=== PATIENT | male | born 1990 | race Caucasian/White ===

== ENCOUNTER 2023-07-08 15:27 | Emergency (ER) | payer OTHER ==
[~2023-07-08] VITALS: Ht 180.3 cm; Wt 63.5 kg
[2023-07-08 16:40] LABS: BASOPHILS ABSOLUTE AUTO 0.01 K/mm3 (0.00-0.23); BASOPHILS PERCENT AUTO 0 % (0-2); EOSINOPHILS ABSOLUTE AUTO 0.06 K/mm3 (0.00-0.68); EOSINOPHILS PERCENT AUTO 1 % (0-6); Hematocrit 40.8 % (37.0-53.0); Hemoglobin 14.2 g/dL (13.5-17.5); IMMATURE GRAN ABSOLUTE AUTO 0.03 K/mm3 (0.00-0.10); IMMATURE GRAN PERCENT AUTO 0 % (0-1); LYMPHOCYTES ABSOLUTE AUTO 1.03 K/mm3 (0.84-5.20); LYMPHOCYTES PERCENT AUTO 11 % (21-46); MONOCYTES ABSOLUTE AUTO 0.74 K/mm3 (0.16-1.47); MONOCYTES PERCENT AUTO 8 % (4-13); Mean Corpuscular HGB 31.8 pg (26.0-34.0); Mean Corpuscular HGB Conc 34.8 g/dL (31.5-36.5); Mean Corpuscular Volume 92 fL (80-100); NEUTROPHILS ABSOLUTE AUTO 7.36 K/mm3 (1.96-9.15); NEUTROPHILS PERCENT AUTO 80 % (41-73); Platelet Count 283 K/mm3 (150-400); RDW Coefficient Variation 11.8 % (11.7-14.2); RDW Standard Deviation 39.9 fL (35.1-46.3); Red Blood Cell Count 4.46 M/mm3 (4.30-5.90); White Blood Cell Count 9.23 K/mm3 (4.00-11.30)
[2023-07-08 17:05] LABS: Influenza A, PCR NEGATIVE (NEGATIVE); Influenza B, PCR NEGATIVE (NEGATIVE); Resp Syncytial Virus, PCR NEGATIVE (NEGATIVE); SARS-Cov-2 (COVID-19) PCR, MMC NEGATIVE (NEGATIVE)
[2023-07-08 17:09] LABS: Albumin, Blood 4.2 g/dL (3.4-5.0); Albumin/Globulin Ratio 1.2 (0.8-1.8); Bilirubin, Total 0.4 mg/dL (0.1-1.0); Bun/Creatinine Ratio 15.6 (12.0-20.0); Calcium, Blood 9.1 mg/dL (8.5-10.1); Creatinine, Blood 0.83 mg/dL (0.60-1.20); Globulin, Blood 3.6 g/dL (2.2-4.0); Potassium, Blood 4.8 mmol/L (3.5-5.5); Total Protein, Blood 7.8 g/dL (6.4-8.2)
[2023-07-08 18:45] VITALS: BP 139/80
== END 2023-07-08 18:46 | disposition home or self-care (01) ==
LOC: ER 15:27
PROVIDERS: Physician Assistant
DX: R55 Syncope and collapse (principal)
CPT/HCPCS: 0241U; 80053; 85025; 93005; 93010; 99284-25

== ENCOUNTER 2023-07-14 09:02 | Inpatient (IN) | payer OTHER ==
[2023-07-14] VITALS (29 sets, daily range): BP systolic 80–118; BP diastolic 55–77
[~2023-07-14] VITALS: Ht 180.3 cm; Wt 61.5 kg
[2023-07-14] MEDS ORDERED: LORazepam 2 MG/ML 1ML Injection IV ONE (09:25)
[2023-07-14] MEDS ORDERED: LORazepam 2 MG/ML 1ML Injection IV PRN ×7 (09:25→13:10)
[2023-07-14] MEDS ORDERED: Doxycycline Mo100 M1 PO (09:25)
[2023-07-14 09:40] LABS: Hematocrit 39.5 % (37.0-53.0); Hemoglobin 14.5 g/dL (13.5-17.5); Mean Corpuscular HGB 31.8 pg (26.0-34.0); Mean Corpuscular HGB Conc 36.7 g/dL (31.5-36.5); Mean Corpuscular Volume 87 fL (80-100); Mean Platelet Volume 10.7 fL (9.1-12.4); Platelet Count 279 K/mm3 (150-400); RDW Coefficient Variation 11.2 % (11.7-14.2); RDW Standard Deviation 35.8 fL (35.1-46.3); Red Blood Cell Count 4.56 M/mm3 (4.30-5.90)
[2023-07-14 09:55] LABS: Alanine Aminotransfer (ALT/SGP 34 U/L (12-78); Albumin, Blood 4.1 g/dL (3.4-5.0); Albumin/Globulin Ratio 1.1 (0.8-1.8); Alk Phos 59 U/L (50-136); Anion Gap 8 mmol/L (6-16); Aspartate Aminotrans (AST/SGOT 35 U/L (12-37); Bilirubin, Total 0.5 mg/dL (0.1-1.0); Blood Urea Nitrogen 12 mg/dL (8-24); Bun/Creatinine Ratio 15.5 (12.0-20.0); CO2, Blood 24 mmol/L (21-32); Calcium, Blood 9.3 mg/dL (8.5-10.1); Chloride, Blood 104 mmol/L (98-108); Creatinine, Blood 0.78 mg/dL (0.60-1.20); Ethanol (Alcohol), Blood, Med <3 mg/dL; Globulin, Blood 3.8 g/dL (2.2-4.0); Glomerular Filtration Rate 120 (60-); Glucose, Blood 101 mg/dL (70-99); Potassium, Blood 3.6 mmol/L (3.5-5.5); Sodium, Blood 136 mmol/L (136-145); Total Protein, Blood 7.9 g/dL (6.4-8.2)
[2023-07-14] MEDS ORDERED: Diazepam 5 MG Tab PO ONE (10:05)
[2023-07-14 10:11] LABS: BAND PERCENT MAN 10 % (0-8); BASOPHILS PERCENT MAN 0 % (0-2); EOSINOPHILS PERCENT MAN 0 % (0-6); LYMPHOCYTES ABSOLUTE MAN 1.72 K/mm3 (0.84-5.20); LYMPHOCYTES PERCENT MAN 27 % (21-46); MONOCYTES ABSOLUTE MAN 0.64 K/mm3 (0.16-1.47); MONOCYTES PERCENT MAN 10 % (4-13); NEUTROPHILS ABSOLUTE MAN 4.03 K/mm3 (1.96-9.15); SEG NEUTROPHILS PERCENT MAN 53 % (41-73); TOTAL CELLS COUNTED 100
[2023-07-14] MEDS ORDERED: FLU VACC QS2023-24(6MOS UP)/PF 60 MCG/0.5 ML SYRINGE IM SCH (11:05)
[2023-07-14] MEDS ORDERED: Ondansetron 4 MG TAB PO PRN (11:10)
[2023-07-14] MEDS ORDERED: NS 1,000 ML IV SCH (12:00)
[2023-07-14] MEDS ORDERED: Thiamine HCl 100 MG in NS 50 ML IV SCH (13:00)
[2023-07-14] MEDS ORDERED: Folic Acid 1 MG in NS 50 ML IV SCH (13:00)
[2023-07-14] MEDS ORDERED: Lidocaine 2% Jelly Uro-Jet UR ONE (14:35)
[2023-07-14 15:18] LABS: U Amphetamine Screen Not Detected; U Barbituate Screen Not Detected; U Benzodiazapine Screen DETECTED; U Buprenorphine Screen Not Detected; U Cannabinoids Screen Not Detected; U Cocaine Screen Not Detected; U Methadone Screen Not Detected; U Methamphetamine Screen Not Detected; U Opiates Screen Not Detected; U Oxycodone Screen Not Detected; U Phencyclidine Screen Not Detected
--- NOTE | 2023-07-14 18:28 | NUR ---
SHIFT SUMMARY/ ASSESSMENT PT ARRIVED TO ICU ROOM 3 FROM ER FOR ETOH/ BENZO WITHDRAWLS. . MOVED OVER TO ICU BED VIA SLIDER SHEET. INITIALLY NOT AWAKENING TO PAINFUL STIMULI, PRECEDEX TURNED OFF FOR APPROXIMATELY 1.5 HOURS, VSS DURING THAT TIME. WHEN PT AWOKE, ABLE TO STATE NAME AND BUT MUMBLING INCOHERENTLY OTHERWISE. SKIN DIAPHORETIC, HAVING VISUAL AND AUDIBLE HALLUCINATIONS, DENIED HEADACHE, CIWA >15. MEDICATED X 2 WITH 2MG ATIVAN, PRECEDEX BACK ON DUE TO PT TRYING TO PULL LINES, CORDS, AND LEAVE. BL SOFT WRIST RESTRAINTS IN PLACE. PT HAS NOT BEEN COMBATIVE NOR VIOLENT, JUST NOT REDIRECTABLE. BURNHAM CATH DRAINING YELLOW URINE. TOX SCREEN SENT TO LAB. SOCIAL HISTORY PER FAMILY. PT LIV[facility] ALONE AT [facility], COMES TO TOWN TO WORK WITH BROTHER. FAMILY STATES HE HAS BEEN TRYING TO QUIT DRINKING, SELF MEDICATING WITH XANAX BUT UNSURE OF HIS SOURCE, ALSO TAKES KRATOM. PER FAMILY HE HAD SEIZURE LIKE ACTIVITY A WEEK AGO, DID NOT FOLLOW UP WITH PCP HE DOES NOT HAVE ONE. FAMILY INSISTENT THAT HE GET ASSISTANCE VIA ADAPT OR SOMETHING SIMILAR, VERY STRONG/ SUPPORTIVE FAMILY.
[2023-07-14] MEDS ORDERED: NS 250 ML IV PRN (20:20)
--- NOTE | 2023-07-14 21:04 | NUR ---
ASSUMPTION OF CARE BEDSIDE SHIFT REPORT RECEIVED FROM DAYSHIFT RN. PT RESTING IN BED, RESPONSIVE TO PAINFUL STIMULI AND OCCASIONALLY VERBAL STIMULI. PRECEDEX INFUSING AT 0.6MCG/KG/HR, SEE FLOWSHEET FOR TITRATIONS. PT ABLE TO ANSWER SOME QUESTIONS, STATES HIS NAME AND , OTHERWISE CONFUSED, MUMBLES INCOHERENTLY AT TIMES. PT PULLS AT SOFT WRIST RESTRAINTS, NOT REDIRECTABLE. HR 50-70'S SINUS, MAP >65. PT ON RA, OXYGEN SATURATION >95%. ABDOMEN SOFT NONTENDER, BOWEL TONES ACTIVE IN ALL FOUR QUADRANTS. FOELY PATENT DRAINING YELLOW URINE TO GRAVITTY. PIV TO RIGHT WRIST AND RAC. PRECEDEX INFUSING, NS INFUSING TKO. FAMILY AT THE BEDSIDE AT BEGINNING OF SHIFT, SUPPORTIVE AND INTERACTIVE IN CARE. BED IN LWOEST POSITION, CALL LIGTH WITHIN REACH, CARE CONTINUES.
--- NOTE | 2023-07-14 22:05 | NUR ---
PT UPDATE PT LAST DOSE OF ATIVAL WAS AT 1633. ATTEMPTING TO DECREASE PRECEDEX AT THIS TIME, PT AROUSABLE TO PAINFUL STIMULI, CONFUSED, ABLE TO STATE NAME AND , MUMBLES INCOHERENTLY. CIWA SCORE OF 8, ATIVAN 1MG GIVEN PER EMAR. CONTINUES IN BILATERAL SOFT WRIST RESTRAINTS. CARE CONTINUES.
--- NOTE | 2023-07-14 23:02 | NUR ---
PT UPDATE PT NOTED TO BE HOLDING UP LEFT HAND IN BED, UPON CHECKING ON PT, PT RESPONSIVE TO VERBAL STIMULI. PT ORIENTED TO SELF, PLACE, AND SITUATION. ANSWERS QUESTIONS APPROPRIATELY, FOLLOWS COMMANDS AND IS ABLE TO MAKE NEEDS KNOWN. PT STATED THAT HE STOPPED TAKING XANAX 0.25 ON 07/06/23 AND STATES THAT HE HAS HAD PROBLEMS WTTH BENZODIAZAPINE ADDICTION IN THE PAST. HE ALSO STATES THAT HE DRINKS 3-4 BEERS PER DAY AND OCCASIONALLY DRINKS WHISKEY, 1 SHOT EVERY 3-4 DAYS. PRECEDEX CONTINUES AT 0.4MCG/KG/HR, SEE FLOWSHEET FOR TITRATIONS. CARE CONTINUES.
[2023-07-14 23:04] LABS: Source, Urine Foley catheter
[2023-07-14 23:12] LABS: Bilirubin, Urine Neg (Neg); Blood, Urine 4+ (Neg); Glucose Qualitative, Urine Neg (Neg); Ketones, Urine 4+ (Neg); Leukocyte Esterase, Urine Neg (Neg); Nitrite, Urine Neg (Neg); Protein, Urine 2+ (Neg); Urobilinogen, Urine NORM (Normal)
[2023-07-14 23:39] LABS: Appearance, Urine Clear (Clear); Color, Urine Yellow (P-Yellow)
[2023-07-14 23:41] LABS: Bacteria Few /hpf; Red Blood Cells, Urine 25-50 /hpf (0-2); Squamous Epithelial Cells Few /hpf (Few); White Blood Cells, Urine 0-2 /hpf (0-5)
[2023-07-15] VITALS (21 sets, daily range): BP systolic 84–121; BP diastolic 43–84
[2023-07-15 04:01] LABS: BASOPHILS ABSOLUTE AUTO 0.01 K/mm3 (0.00-0.23); BASOPHILS PERCENT AUTO 0 % (0-2); EOSINOPHILS ABSOLUTE AUTO 0.11 K/mm3 (0.00-0.68); EOSINOPHILS PERCENT AUTO 2 % (0-6); Hematocrit 36.3 % (37.0-53.0); Hemoglobin 12.7 g/dL (13.5-17.5); IMMATURE GRAN ABSOLUTE AUTO 0.01 K/mm3 (0.00-0.10); IMMATURE GRAN PERCENT AUTO 0 % (0-1); LYMPHOCYTES ABSOLUTE AUTO 1.66 K/mm3 (0.84-5.20); LYMPHOCYTES PERCENT AUTO 27 % (21-46); MONOCYTES ABSOLUTE AUTO 0.65 K/mm3 (0.16-1.47); MONOCYTES PERCENT AUTO 10 % (4-13); Mean Corpuscular HGB 31.1 pg (26.0-34.0); Mean Corpuscular Volume 89 fL (80-100); Mean Platelet Volume 10.5 fL (9.1-12.4); NEUTROPHILS ABSOLUTE AUTO 3.82 K/mm3 (1.96-9.15); NEUTROPHILS PERCENT AUTO 61 % (41-73); Platelet Count 267 K/mm3 (150-400); RDW Coefficient Variation 11.6 % (11.7-14.2); RDW Standard Deviation 37.2 fL (35.1-46.3); Red Blood Cell Count 4.08 M/mm3 (4.30-5.90); White Blood Cell Count 6.26 K/mm3 (4.00-11.30)
[2023-07-15 04:25] LABS: Albumin, Blood 3.4 g/dL (3.4-5.0); Albumin/Globulin Ratio 1.1 (0.8-1.8); Bilirubin, Total 0.5 mg/dL (0.1-1.0); Bun/Creatinine Ratio 20.6 (12.0-20.0); Calcium, Blood 8.1 mg/dL (8.5-10.1); Creatinine, Blood 0.68 mg/dL (0.60-1.20); Globulin, Blood 3.2 g/dL (2.2-4.0); Potassium, Blood 3.7 mmol/L (3.5-5.5); Total Protein, Blood 6.6 g/dL (6.4-8.2)
--- NOTE | 2023-07-15 05:51 | NUR ---
SHIFT SUMMARY PT CONTINUES TO REST IN BED, SLEEPING BUT AROUSABLE. PT ANSWERS QUESTIONS APPROPRIATELY, FOLLOWS COMMANDS AND IS ABLE TO MAKE NEEDS KNOWN. PT MOVES ALL EXTREMITIES EQUALLY BILATERALLY. PT STATES THAT HIS VISION IS "SLUGGISH" AND THAT HE IS SEEING SHAPES MOVE ABOUT THE ROOM, HE ALSO STATES THAT HE FEELS "LOOPY". PT OCCASIONALLY TALKS TO SELF IN ROOM, ORIENTED TO PERSON, PLACE, AND SITUATION. PRECEDEX ON SB, SEE FLOWSHEET FOR TITRATIONS. HR 60-80'S SINUS, MAP >65. PT ON RA, OXYGEN SATURATION >65%. ABDOMEN SOFT NONTENDER, NO BM THIS SHIFT. BURNHAM IN PLACE PATENT DRAINING TO GRAVITY. PIV TO RIGHT WRIST AND RIGHT FOREARM SL, COBAN AND NETTING IN PLACE TO PREVENT PT PULLING. BED IN LOWEST POSITION, CALL LIGTH WITHIN REACH. CARE CONTINUES.
[2023-07-15] MEDS ORDERED: Enoxaparin 40 MG/0.4 ML SYR SC SCH (09:00)
[2023-07-15] MEDS ORDERED: ChlordiazePOXIDE 25 MG Cap PO PRN ×2 (09:15)
--- NOTE | 2023-07-15 09:26 | NUR ---
Assumed care of pt at 0700. Bedside report received from Alayna KRAUS. Pt A&O x 2. States today is "Friday" and the "". States that it is "July". Pleasant and cooperative with care. Family at bedside and hospitalist team rounded on patient. Precedex off. Does not want breakfast but stated he would like some coffee. This was provided.
[2023-07-15] MEDS ORDERED: Gabapentin 300 MG Cap PO SCH (14:00)
--- NOTE | 2023-07-15 14:41 | NUR ---
Has not required any PRN medication this shift. Gabapentin given as scheduled. Pt pleasant and cooperative with care. Has not attempted to get out of bed without assistance. No inidications of hallucinations. Family at bedside as pt has requested.
--- NOTE | 2023-07-15 18:01 | NUR ---
SHIFT SUMMARY PT AOX2-3, STAND PIVOT TO THE BSC WITH 1 PERSON. NO COMPLAINTS SINCE ADMIT TO THE FLOOR, TRANSFER FROM ICU. PT'S FAMILY AT THE BS. REPORT RECEIVED FROM EFRA STOUT. CALL LIGHT WITHIN REACH, BED IN THE LOWEST POSITION. WILL REPORT TO ONCOMING NURSE.
[2023-07-16 02:00] VITALS: BP 120/71
[2023-07-16 06:00] LABS: BASOPHILS ABSOLUTE AUTO 0.02 K/mm3 (0.00-0.23); BASOPHILS PERCENT AUTO 0 % (0-2); EOSINOPHILS ABSOLUTE AUTO 0.17 K/mm3 (0.00-0.68); EOSINOPHILS PERCENT AUTO 3 % (0-6); Hematocrit 36.6 % (37.0-53.0); IMMATURE GRAN PERCENT AUTO 0 % (0-1); LYMPHOCYTES ABSOLUTE AUTO 1.73 K/mm3 (0.84-5.20); LYMPHOCYTES PERCENT AUTO 31 % (21-46); MONOCYTES ABSOLUTE AUTO 0.65 K/mm3 (0.16-1.47); MONOCYTES PERCENT AUTO 12 % (4-13); Mean Corpuscular HGB 31.1 pg (26.0-34.0); Mean Corpuscular HGB Conc 35.5 g/dL (31.5-36.5); Mean Corpuscular Volume 88 fL (80-100); Mean Platelet Volume 10.6 fL (9.1-12.4); NEUTROPHILS ABSOLUTE AUTO 2.98 K/mm3 (1.96-9.15); NEUTROPHILS PERCENT AUTO 54 % (41-73); Platelet Count 331 K/mm3 (150-400); RDW Coefficient Variation 11.4 % (11.7-14.2); RDW Standard Deviation 36.9 fL (35.1-46.3); Red Blood Cell Count 4.18 M/mm3 (4.30-5.90); White Blood Cell Count 5.55 K/mm3 (4.00-11.30)
--- NOTE | 2023-07-16 06:37 | NUR ---
SHIFT SUMMARY PT HAD LIBRIUM THIS SHIFT. SEE NOTES IN PAPER CHART. PT HAS BEEN RESTING WELL SINCE THEN. DENIES ANY MORE S/S OF DETOX. WILL CONTINUE TO MONITOR AND PROVIDE CARE T/O SHIFT.
[2023-07-16 07:04] LABS: Bun/Creatinine Ratio 14.6 (12.0-20.0); Calcium, Blood 8.5 mg/dL (8.5-10.1); Creatinine, Blood 0.75 mg/dL (0.60-1.20); Potassium, Blood 3.2 mmol/L (3.5-5.5)
[2023-07-16 07:47] VITALS: BP 108/69
[2023-07-16] MEDS ORDERED: Potassium Chloride 10 Meq Tablet SA PO ONE (09:20)
[2023-07-16] MEDS ORDERED: GABA600 PO (14:31)
--- NOTE | 2023-07-16 15:40 | NUR ---
SHIFT SUMMARY PATIENT ALERT AND INTERACTIVE. PATIENT INDEPENDENT IN THE ROOM. PATIENT HAVING MILD TREMORS WITH AMBULATING. PATIENT DENYING NEED FOR ANY MEDICATIONS AT THIS TIME FOR WITHDRAWAL SYMPTOMS. 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 PATIENT STATES THAT WHEN HE DRINKS, HE STAYS HOME AND DRINKS UNTIL HE PASSES OUT. PATIENT STATES HE WAS TAKING THE XANAX FOR HIS ANXIETY AND TO FEEL BETTER. PATIENT STATES THAT HE WAS GETTING IT ONLINE WITHOUT A PERSCRIPTION. PATIENT VERBALIZING THE DESIRE TO QUIT DRINKING AND USING DRUGS. PATIENT STATES THAT HE DOES GET DEPRESSED IN THE WINTER TIME. PATIENT IS ISOLATED AT [facility]. DISCHARGE INSTRUCTIONS REVIEWED WITH PATIENT AND FATHER. RX SENT TO [facility]. PATIENT AMBULATED OUT. BELONGINGS RETURNED TO PATIENT. ROOM CHECK DONE BEFORE PATIENT DEPARTED.
== END 2023-07-16 15:22 | disposition home or self-care (01) | DRG 897 ==
LOC: ER 09:02 → ICUE 09:03 → ER 09:03 → ICUE 12:38 → MEDS 07-15 11:46 → ICUE 07-15 13:36 → MEDS 07-15 14:34 → ENPENDDIS 07-16 13:22 → MEDS 07-16 15:22
PROVIDERS: Family Medicine; Student in an Organized Health Care Education/Training Program; ADMIT Internal Medicine
DX: F10.231 Alcohol dependence with withdrawal delirium (principal); F13.231 Sedative, hypnotic or anxiolytic dependence with withdrawal delirium; F11.10 Opioid abuse, uncomplicated
CPT/HCPCS: 36415; 51701; 51702; 51703; 70450; 80048; 80053; 81001; 85025; 93005; 93010; 94760; 96365; 96366; 96367; 96372; 96375; 96376; 99285-25; A9270; G0378; J1650; J2060; J3411; J7030; J7050